=== PATIENT | female | born 1970 | race Caucasian/White ===

== ENCOUNTER 2016-08-26 16:47 | Emergency (ER) | payer MEDICAID ==
[~2016-08-26] VITALS: Ht 157.5 cm; Wt 119.0 kg
[~2016-08-26 16:47] MED LIST: ALBU8.5H3 INH; AZIT250T94 PO; CYCL-319 PO; IBUP-1542 PO; MED4DP PO; METR500T PO; NAPR-260 PO; PRED20TA PO; TRAM50TA2 PO
[2016-08-26 17:07] VITALS: Ht 157.5 cm; Wt 119.0 kg
[2016-08-26] MEDS ORDERED: KETOROLAC 30 MG INJ IM STA (18:34)
[2016-08-26] MEDS ORDERED: IBUP-1542 PO (19:13)
--- NOTE | 2016-08-26 20:09 | ERD ---
ER Documentation Chief Complaint Date/Time DATE: 08/26/16 TIME: 20:01 Chief Complaint HTN AND STATES FEELS NUMBNESS ON SIDE OF FACE. SPEECH CLEAR NEURO INTACT HPI This patient is a 46-year-old female with no significant medical history presenting to the emergency department for numbness to the left side of her face that has been ongoing for the past month intermittently. Additionally the patient reports palpitations. The patient reports grieving secondary to her son committing suicide a proximally 1 month ago. The patient has also had left- sided paraspinal cervical tension intermittent for the past month. The patient has taken [id number] medication with only mild relief of symptoms. The patient has not seek counseling for the loss of her son. She denies chest pain , diaphoresis, syncope, dizziness, nausea, vomiting, diarrhea, or other symptoms at this time. The patient adamantly denies suicidal or homicidal ideation at this time. ROS All systems reviewed and are negative except as per history of present illness. Medications Home Meds Active Scripts Ibuprofen* (Motrin*) 600 Mg Tab, 600 MG PO Q6, #30 TAB Prov:KAM HANDY PA-C 08/26/16 Albuterol Sulfate* (Proair HFA*) 8.5 Gm Hfa.aer.ad, 2 PUFF INH Q4, #1 INHALER Prov:KAI SPEARS PA-C 01/09/16 Prednisone* (Prednisone*) 20 Mg Tab, 40 MG PO DAILY for 4 Days, TAB Prov:KAI SPEARS PA-C 01/09/16 Azithromycin* (Zithromax*) 250 Mg Tablet, 250 MG PO .AngyPACK DIRECTED, #6 TAB TAKE 500 MG (2 TABS) THE FIRST DAY THEN 250 MG (1 TAB) DAYS 2-5 Prov:KAI SPEARS PA-C 01/09/16 Tramadol HCl (Tramadol HCl) 50 Mg Tablet, 50 MG PO Q4 Y for PAIN, #20 TAB Prov:DANIELLE WILL PA-C 12/13/15 Naproxen* (Naprosyn*) 500 Mg Tablet, 500 MG PO BID Y for PAIN AND/OR INFLAMMATION, #30 TAB Prov:DANIELLE WILL PA-C 12/13/15 Cyclobenzaprine Hcl* (Cyclobenzaprine Hcl*) 10 Mg Tablet, 10 MG PO TID, #20 TAB Prov:DANIELLE WILL PA-C 12/13/15 Metronidazole* (Flagyl*) 500 Mg Tablet, 500 MG PO TID for 7 Days, TAB Prov:ESTEBAN NELSON NP 09/25/15 Ibuprofen* (Motrin*) 600 Mg Tab, 600 MG PO Q6H Y for PAIN AND OR ELEVATED TEMP, #30 TAB Prov:RELL ODONNELL PA-C 07/04/15 Methylprednisolone* (Medrol* DOSE PACK) 4 Mg/Dose-Pack Tab.ds.pk, 4 MG PO . DIRECTED, #1 PACKET Prov:WILMERGERSON PA-C 04/13/15 Allergies Allergies: Coded Allergies: diphenhydramine (Verified Adverse Reaction, Unknown, "NUMBNESS IN FACE AND TONGUE", 09/25/15) PMhx/Soc History of Surgery: Yes (partial hysterectomy) Anesthesia Reaction: No Hx Neurological Disorder: No Hx Respiratory Disorders: Yes (asthma) Hx Cardiac Disorders: No Hx Psychiatric Problems: No Hx Miscellaneous Medical Probl: No Hx Alcohol Use: No Hx Substance Use: No Hx Tobacco Use: No FmHx Noncontributory for chief complaint Physical Exam Vitals Vital Signs Date Time Temp Pulse Resp B/P Pulse Ox O2 Delivery O2 Flow Rate FiO2 08/26/16 17:07 98.1 81 20 151/82 99 Physical Exam Const: The patient is resting comfortably in no acute distress. Head: Atraumatic Eyes: Normal Conjunctiva ENT: Normal External Ears, Nose and Mouth. Neck: Full range of motion..~ No meningismus. The patient has some tenderness to palpation of the paraspinal cervical muscles on the left side. Back: There are no step-offs. There is no midline tenderness. Resp: Clear to auscultation bilaterally Cardio: Regular rate and rhythm, no murmurs Abd: Soft, non tender, non distended. Normal bowel sounds Skin: No petechiae or rashes Back: No midline or flank tenderness Ext: No cyanosis, or edema Neur: Awake and alert Psych: Flat affect. The patient is tearful. Results 24 hrs Current Medications Medications (Trade) Dose Ordered Sig/Ricardo Route PRN Reason Start Time Stop Time Status Last Admin Dose Admin Ketorolac Tromethamine (Toradol) 30 mg ONCE STAT IM 08/26/16 18:34 08/26/16 18:35 DC 08/26/16 19:10 Procedures/MDM 46-year-old female presents secondary to complaints of left-sided numbness on her face. She also has tension of the paraspinal muscles of the C-spine on the left side. She reports palpitations. On physical examination the patient's vitals are within normal limits. The patient is slightly hypertensive at 151/ 82. Patient's blood pressure was elevated (>120/80) but appears stable without evidence of hypertension emergency or urgency. The patient was counseled about the risks of hypertension and urged to pursue outpatient monitoring and therapy within a week with their primary care physician. On further questioning the patient is very tearful secondary to losing her son to suicide a proximally 1 month ago. The patient states she has no resources for grievance except for her taoism and other family members. We contacted the social science professor, Kimberly, who spoke with the patient directly and gave her resources for grievance. The patient adamantly denies suicidal or homicidal ideation at this time. EKG was done based off the patient's symptoms and was negative for any coronary ischemia. The patient was given IM Toradol in the department for neck tension and was feeling improved on reevaluation. The patient was given a prescription for ibuprofen 600 mg to treat her pain as an outpatient. The patient was advised to follow-up with her primary care physician and to use the resources given by the social science professor. The patient was advised to return to the department immediately for any new or worsening symptoms. The patient agrees with the discharge plan and diagnosis. All questions and concerns of been addressed. The patient was hemodynamically stable prior to discharge. I doubt coronary ischemia, suicidal ideation, cardiac arrhythmia, or other emergent conditions at this time. I spoke with my supervising physician Dr. Dale Lozano, who agreed with the ED course. EKG: Interpreted by ED physician Rate/Rhythm: Normal sinus rhythm with a rate of 74 bpm. Normal axis. QRS, ST, T-waves: No changes consistent w/ acute ischemia Impression: No evidence of ischemia or arrhythmia Departure Diagnosis: Primary Impression: Myalgia Additional Impression: Grieving Condition: Fair Patient Instructions: Grief and Loss, Helping Yourself Through Grief and Loss, Myalgias Referrals: [facility] Usted se wharton hecho un examen mdico de control que le indica que no est en gordon condicin que requiera tratamiento urgente en el Departamento de Emergencia. Un estudio ms profundo y el tratamiento de steve condicin pueden esperar sin ningn riesgo hasta que usted sea atendida/o en el consultorio de steve mdico o gordon cl francoise. Es responsabilidad suya arreglar gordon arianne para el seguimiento del donnell. MANEJO DE CONDICIONES NO URGENTES EN EL FUTURO 1) Si usted tiene un mdico de atencin primaria: Usted debera llamar a steve mdico de atencin primaria antes de venir al departamento de emergencia. Despus de las horas de consultorio, steve doctor o steve asociado/a est disponible por telfono. El mdico o enfermero de juani en el servicio telefnico puede asesorarle por dejah medio para atender el problema, o donnell contrario se puede programar gordon arianne. 2) Si usted no tiene un mdico de atencin primaria: Llame al mdico o clnica de referencia que aparece abajo dhara las horas de consultorio para hacer gordon arianne para que le vean. CLINICAS: [facility] [phone] [facility] [phone] [facility] [phone] [facility] [facility] [phone] [facility] [place] [id number] [phone] [facility] [phone] [address] Additional Instructions: No mas mejor en 2-3 abbott, regresar. Mas peor en 24 horas, regresear rapidamente. Ir a doctor primario in 5-7 abbott. [facility] instrucciones cuando campbell medicamento. KAM HANDY PA-C Aug 26, 2016 20:09
== END 2016-08-26 19:30 | disposition home or self-care (01) ==
LOC: FTE 16:47
DX: M79.1 Myalgia (principal); F43.20 Adjustment disorder, unspecified; R00.2 Palpitations
CPT/HCPCS: 93005; J1885; 96372

== ENCOUNTER 2017-01-20 10:09 | Emergency (ER) | payer MEDICAID ==
--- NOTE | 2017-01-20 12:38 | ERD ---
ER Documentation Chief Complaint Date/Time DATE: 01/20/17 TIME: 12:36 Chief Complaint ear pain, sore throat HPI 46-year-old female comes in with left inner ear pain that is achy with sore throat, for the past 2 days. She reports tactile fevers only. There is no history of hemoptysis, vomiting, diarrhea. ROS All systems reviewed and are negative except as per history of present illness. Medications Home Meds Active Scripts Ibuprofen* (Motrin*) 600 Mg Tab, 600 MG PO Q6, #30 TAB Prov:KAM HANDY PA-C 08/26/16 Albuterol Sulfate* (Proair HFA*) 8.5 Gm Hfa.aer.ad, 2 PUFF INH Q4, #1 INHALER Prov:KAI SPEARS PA-C 01/09/16 Prednisone* (Prednisone*) 20 Mg Tab, 40 MG PO DAILY for 4 Days, TAB Prov:KAI SPEARS PA-C 01/09/16 Azithromycin* (Zithromax*) 250 Mg Tablet, 250 MG PO .AngyPACK DIRECTED, #6 TAB TAKE 500 MG (2 TABS) THE FIRST DAY THEN 250 MG (1 TAB) DAYS 2-5 Prov:KAI SPEARS PA-C 01/09/16 Tramadol HCl (Tramadol HCl) 50 Mg Tablet, 50 MG PO Q4 Y for PAIN, #20 TAB Prov:DANIELLE WILL PA-C 12/13/15 Naproxen* (Naprosyn*) 500 Mg Tablet, 500 MG PO BID Y for PAIN AND/OR INFLAMMATION, #30 TAB Prov:DANIELLE WILL PA-C 12/13/15 Cyclobenzaprine Hcl* (Cyclobenzaprine Hcl*) 10 Mg Tablet, 10 MG PO TID, #20 TAB Prov:DANIELLE WILL PA-C 12/13/15 Metronidazole* (Flagyl*) 500 Mg Tablet, 500 MG PO TID for 7 Days, TAB Prov:ESTEBAN NELSON NP 09/25/15 Ibuprofen* (Motrin*) 600 Mg Tab, 600 MG PO Q6H Y for PAIN AND OR ELEVATED TEMP, #30 TAB Prov:RELL ODONNELL PA-C 07/04/15 Methylprednisolone* (Medrol* DOSE PACK) 4 Mg/Dose-Pack Tab.ds.pk, 4 MG PO . DIRECTED, #1 PACKET Prov:GERSON GUILLEN Tanika GLASS 04/13/15 Allergies Allergies: Coded Allergies: diphenhydramine (Verified Adverse Reaction, Unknown, "NUMBNESS IN FACE AND TONGUE", 09/25/15) PMhx/Soc History of Surgery: Yes (partial hysterectomy) Anesthesia Reaction: No Hx Neurological Disorder: No Hx Respiratory Disorders: Yes (asthma) Hx Cardiac Disorders: No Hx Psychiatric Problems: No Hx Miscellaneous Medical Probl: No Hx Alcohol Use: No Hx Substance Use: No Hx Tobacco Use: No Physical Exam Vitals Review nursing notes Physical Exam General: Well-developed, well-nourished. The patient appears in no acute distress. HEENT: Head is normocephalic, atraumatic. No scleral icterus. Neck: Supple. Nontender. Left TM is erythematous, bulging, oropharynx is erythematous, no exudate, uvula midline. Lungs: Clear to auscultation. Normal air movement. Heart: Regular rate and rhythm. S1 and S2 are normal. No murmurs, gallops, or rubs. Abdomen: Nondistended. Extremities: No clubbing or cyanosis. Moving extremities x 4. No weakness. Neurologic: Alert and oriented 3. No focal deficits. Normal speech and gait. Skin: Normal turgor. No rash or lesions. Procedures/MDM 46-year-old female comes in with left-sided otitis media, evidence of acute pharyngitis, unlikely strep. Patient's oropharyngeal examination shows erythema , no exudate, she does not have any fever, doubt bacterial infection. She does not show any signs of mastoiditis, deep space infection, meningitis, she is well -appearing nontoxic and stable for discharge. Departure Diagnosis: Primary Impression: Otitis media, left Additional Impression: Acute pharyngitis Condition: KAI Nichols PA-C Jan 20, 2017 12:38
== END 2017-01-20 14:16 | disposition home or self-care (01) ==
LOC: FTE 10:09
DX: H66.92 Otitis media, unspecified, left ear (principal); J02.9 Acute pharyngitis, unspecified; J45.909 Unspecified asthma, uncomplicated
CPT/HCPCS: 99282

== ENCOUNTER 2017-03-14 19:34 | Emergency (ER) | payer MEDICAID ==
[~2017-03-14] VITALS: Ht 162.6 cm; Wt 120.0 kg
[2017-03-14 19:42] VITALS: Ht 162.6 cm; Wt 120.0 kg
--- NOTE | 2017-03-14 21:59 | ERD ---
ER Documentation Chief Complaint Chief Complaint Vaginal foreign body HPI The patient is a 46-year-old female who presents to the Emergency Department with complaint of retained vaginal foreign body. The patient reports that her last menstrual period began on 03/09/2017. She last placed a tampon last night. The patient notes that she had too much to drink last night, and then had sexual intercourse with her , forgetting about the tampon. She remembered this morning, but states that she was unable to remove the tampon herself. Therefore, she presents today. She denies any abdominal pain/cramping, nausea, vomiting, flank pain, dysuria, or new vaginal discharge. No other complaints at this time. ROS All systems reviewed and are negative except as per history of present illness. Medications Home Meds Active Scripts Ibuprofen* (Motrin*) 600 Mg Tab, 600 MG PO Q6, #30 TAB Prov:KAM HANDY PA-C 08/26/16 Albuterol Sulfate* (Proair HFA*) 8.5 Gm Hfa.aer.ad, 2 PUFF INH Q4, #1 INHALER Prov:KAI SPEARS PA-C 01/09/16 Prednisone* (Prednisone*) 20 Mg Tab, 40 MG PO DAILY for 4 Days, TAB Prov:KAI SPEARS PA-C 01/09/16 Azithromycin* (Zithromax*) 250 Mg Tablet, 250 MG PO .AngyPACK DIRECTED, #6 TAB TAKE 500 MG (2 TABS) THE FIRST DAY THEN 250 MG (1 TAB) DAYS 2-5 Prov:KAI SPEARS PA-C 01/09/16 Tramadol HCl (Tramadol HCl) 50 Mg Tablet, 50 MG PO Q4 Y for PAIN, #20 TAB Prov:DANIELLE WILL PA-C 12/13/15 Naproxen* (Naprosyn*) 500 Mg Tablet, 500 MG PO BID Y for PAIN AND/OR INFLAMMATION, #30 TAB Prov:DANIELLE WILL PA-C 12/13/15 Cyclobenzaprine Hcl* (Cyclobenzaprine Hcl*) 10 Mg Tablet, 10 MG PO TID, #20 TAB Prov:DANIELLE WILL PA-C 12/13/15 Metronidazole* (Flagyl*) 500 Mg Tablet, 500 MG PO TID for 7 Days, TAB Prov:ESTEBAN NELSON NP 09/25/15 Ibuprofen* (Motrin*) 600 Mg Tab, 600 MG PO Q6H Y for PAIN AND OR ELEVATED TEMP, #30 TAB Prov:RELL ODONNELL PA-C 07/04/15 Methylprednisolone* (Medrol* DOSE PACK) 4 Mg/Dose-Pack Tab.ds.pk, 4 MG PO . DIRECTED, #1 PACKET Prov:GERSON GUILLEN Tanika GLASS 04/13/15 Allergies Allergies: Coded Allergies: diphenhydramine (Verified Adverse Reaction, Unknown, "NUMBNESS IN FACE AND TONGUE", 03/14/17) PMhx/Soc History of Surgery: Yes (partial hysterectomy) Anesthesia Reaction: No Hx Neurological Disorder: No Hx Respiratory Disorders: Yes (asthma) Hx Cardiac Disorders: No Hx Psychiatric Problems: No Hx Miscellaneous Medical Probl: No Hx Alcohol Use: No Hx Substance Use: No Hx Tobacco Use: No Smoking Status: Never smoker Physical Exam Vitals Vital Signs Date Time Temp Pulse Resp B/P Pulse Ox O2 Delivery O2 Flow Rate FiO2 03/14/17 19:42 98.7 75 20 142/64 97 Physical Exam GENERAL: Well-developed, well-nourished, in no acute distress. HEENT: Head is normocephalic, atraumatic. No scleral pallor or icterus. Conjunctiva pink. Nares are patent bilaterally. Moist mucous membranes. NECK: Supple. Full range of motion. RESPIRATORY: Lungs are clear to auscultation bilaterally. Equal breath sounds. Normal expiratory effort. CARDIOVASCULAR: Regular rate and rhythm. S1 and S2 normal. GASTROINTESTINAL: Abdomen is soft, nontender, and nondistended. Normal bowel sounds. FLANK: No CVA tenderness.. BACK: No midline tenderness. GENITOURINARY: Normal external genitalia. No abnormal discharge. Small amount of dried blood in vaginal vault. Tampon present. No CMT. No adnexal tenderness. No uterine tenderness. EXTREMITIES: No clubbing, cyanosis, or edema. Normal skin perfusion. Moving all extremities. No focal swelling or erythema. Distal pulses are palpable, 2+ bilaterally. Capillary refill is less than 2 seconds. NEUROLOGIC: The patient is alert, awake, and oriented x 3. INTEGUMENT: Skin is clean, dry and intact. PSYCHIATRIC: Appropriate; Cooperative. Results 24 hrs Laboratory Tests Test 03/14/17 21:49 Bedside Urine pH (LAB) 5.5 Bedside Urine Protein (LAB) Negative Bedside Urine Glucose (UA) Negative Bedside Urine Ketones (LAB) Negative Bedside Urine Blood Negative Bedside Urine Nitrite (LAB) Negative Bedside Urine Leukocyte Esterase (L Negative Procedures/MDM PROCEDURE NOTE: Foreign body removal PROCEDURE: Removal of previously placed tampon PROCEDURAL SUMMARY: The patient was positioned appropriately in the lithotomy position. A speculum was inserted, and the patient's foreign body was immediately visualized and removed with the use of forceps. Re-examination of area following the foreign body removal reveals a small amount of blood in vaginal vault, no hemorrhage, no abnormal discharge, no lacerations. No additional foreign bodies visualized. No cervical motion tenderness, adnexal tenderness or uterine tenderness. The patient tolerated the procedure well without complications. Standard post- procedure care was explained and return precautions were given. MEDICAL DECISION MAKING: This is a 46-year-old female who presents to the emergency department for a vaginal foreign body that was removed successfully. The patient tolerated the procedure well. The patient had no cervical motion tenderness, adnexal tenderness or uterine tenderness. No abnormal discharge noted. Clinically, no evidence of toxic shock syndrome, vaginal laceration, cervicitis, PID, urinary tract infection, pyelonephritis. At this time, I believe the patient is suitable for outpatient management, and she will be discharged home with strict return precautions for signs of deteriorating or worsening condition. I recommend that they follow up with their primary care provider in 2-3 days for reevaluation and further management, or return to the ER sooner for worsening symptoms. The patient is in stable condition with stable vital signs and therefore can be discharged home. I shared my medical decision making and plan with the patient at length and in great detail, and she verbally understands and agrees with the plan for further observation and care as an outpatient. At the time of discharge all questions were answered. Departure Diagnosis: Primary Impression: Vaginal foreign body Encounter type: initial encounter Qualified Code: T19.2XXA - Foreign body in vagina, initial encounter Condition: Stable Patient Instructions: Vaginal Foreign Body, Removed (Adult) Additional Instructions: Llame al doctor MAANA y karina gordon MEDINA PARA DENTRO DE 2-3 MARSHALL.Dgale a la secretaria que nosotros le instruimos hacer esta medina.Avise o llame si steve condicin se empeora antes de la medina. Regresa aqui si peor o no mejor. JENNIE ORTEGA PA-C Mar 14, 2017 21:59
== END 2017-03-14 22:04 | disposition home or self-care (01) ==
LOC: FTE 19:34
DX: T19.2XXA Foreign body in vulva and vagina, initial encounter (principal); J45.909 Unspecified asthma, uncomplicated; X58.XXXA Exposure to other specified factors, initial encounter; Y92.9 Unspecified place or not applicable
CPT/HCPCS: 81003; Z7502; 99284

== ENCOUNTER 2017-12-29 16:35 | Emergency (ER) | END 2017-12-29 20:35 | disposition home or self-care (01) ==

== ENCOUNTER 2018-04-30 19:58 | Emergency (ER) | END 2018-04-30 22:34 | disposition home or self-care (01) ==